=== PATIENT | male | born 1955 | race Caucasian/White ===

== ENCOUNTER 2024-05-02 11:29 | Emergency (ER) | payer MEDICARE, OTHER ==
[~2024-05-02] VITALS: Ht 188 cm; Wt 102.1 kg
[2024-05-02 14:14] VITALS: BP 126/70; TEMP 98.4; O2SAT 99
== END 2024-05-02 14:15 | disposition home or self-care (01) ==
LOC: ER 11:29
DX: S40.011A Contusion of right shoulder, initial encounter (principal); M23.91 Unspecified internal derangement of right knee; M17.11 Unilateral primary osteoarthritis, right knee; W01.0XXA Fall on same level from slipping, tripping and stumbling without subsequent striking against object, initial encounter; Y93.89 Activity, other specified; Y92.89 Other specified places as the place of occurrence of the external cause; Y99.8 Other external cause status
CPT/HCPCS: 73030; A4606; A4663